=== PATIENT | male | born 1955 | race Caucasian/White ===

== ENCOUNTER 2021-02-14 08:20 | Emergency (ER) | payer MEDICARE, OTHER ==
--- NOTE | 2021-02-14 08:33 | ED Physician Documentation ---
PD HPI CHEST PAIN - Stated complaint Stated Complaint: CHEST PX - History obtained from History obtained from: Patient - History of Present Illness Timing - onset: How many days ago (few) Timing - onset during: Rest (he had noted it mostly when lying down at night, has brief sharp pains lower sternal area localized. Also tender to palpation there. Unrelated to eating.). No: Light activity, Exertion Timing - duration: Seconds Timing - details: Abrupt onset, Intermittant Quality: Aching, Sharp, Pain Location: Substernal (lower sternal/costal margin) Radiation: No: Neck, Back, Abdominal Improved by: No: Rest Worsened by: Palpation, Position (noted when lying down or the act of going sitting to lying) Associated symptoms: Cough (mild chronic). No: Shortness of air, Diaphoresis, Nausea, Feeling faint / dizzy Similar symptoms before: Has not had sx before Recently seen: Not recently seen Review of Systems Constitutional: denies: Fever, Chills Nose: denies: Rhinorrhea / runny nose, Congestion Throat: denies: Sore throat Respiratory: denies: Cough GI: denies: Nausea, Vomiting, Diarrhea Skin: denies: Rash, Lesions Musculoskeletal: denies: Extremity swelling PD PAST MEDICAL HISTORY - Past Medical History Cardiovascular: Hypertension Respiratory: None Neuro: Seizure disorder Endocrine/Autoimmune: None GI: None - Present Medications Home Medications: Ambulatory Orders Medication Instructions Recorded Confirmed Meloxicam [Mobic] 7.5 mg PO BID PRN #15 tablet 02/14/21 Soluble [place] Fiber [Fibercel] 400 gm PO DAILY 15 Days 02/14/21 - Allergies Allergies/Adverse Reactions: Allergies Allergy/AdvReac Type Severity Reaction Status Date / Time divalproex sodium Allergy Unknown Verified 02/14/21 10:11 [From Depakote] PD ED PE NORMAL - Vitals Vital signs reviewed: Yes - General General: Alert and oriented X 3, No acute distress, Well developed/nourished - HEENT HEENT: Pharynx benign - Neck Neck: Supple, no meningeal sign, No adenopathy - Cardiac Cardiac: RRR, No murmur - Respiratory Respiratory: No respiratory distress, Clear bilaterally, Other (tender locally at lower xyphoid area and adjacent cartilage. No noted redness nor swelling. ) - Abdomen Abdomen: Soft, Non tender - Derm Derm: Normal color, Warm and dry - Extremities Extremities: No tenderness to palpate, Normal ROM s pain, No edema, No calf t enderness / cord - Neuro Neuro: Alert and oriented X 3, No motor deficit, Normal speech Results - Vitals Vitals: Vital Signs - 24 hr 02/14/21 02/14/21 02/14/21 08:23 09:00 09:30 Temperature 36 C L Heart Rate 43 L 49 L 47 L Respiratory 16 16 18 Rate Blood Pressure 127/68 125/72 139/95 H O2 Saturation 98 96 97 02/14/21 10:14 Temperature 36.0 C L Heart Rate 47 L Respiratory 18 Rate Blood Pressure 120/70 O2 Saturation 98 Oxygen O2 Source Room air - EKG (time done) 08:25 Rate: Rate (enter#) (46) Rhythm: Sinus bradycardia [place]: Normal Intervals: Normal ID QRS: Poor R wave progression Ischemia: Normal ST segments. No: ST elevation c/w ischemia, ST depression - Labs Labs: Laboratory Tests 02/14/21 02/14/21 02/14/21 08:37 08:37 08:37 WBC 4.0 L RBC 4.16 L Hgb 13.6 L Hct 40.6 L MCV 97.6 H MCH 32.7 H MCHC 33.5 RDW 13.7 Plt Count 236 MPV 8.9 Neut # (Auto) 1.8 Lymph # (Auto) 1.6 [place] # (Auto) 0.4 Eos # (Auto) 0.2 Baso # (Auto) 0.1 Absolute Nucleated RBC 0.00 Nucleated RBC % 0.0 Sodium 136 Potassium 4.0 Chloride 101 Carbon Dioxide 27 Anion Gap 8.0 BUN 15 Creatinine 0.8 Estimated GFR (MDRD) 96 Glucose 101 H Calcium 8.8 Total Bilirubin 0.3 AST 16 ALT 14 Alkaline Phosphatase 73 Troponin I High Sens 2.9 B-Natriuretic Peptide Total Protein 7.1 Albumin 4.1 Globulin 3.0 Albumin/Globulin Ratio 1.4 Lipase 24 Phenytoin 8.1 02/14/21 08:37 WBC RBC Hgb Hct MCV MCH MCHC RDW Plt Count MPV Neut # (Auto) Lymph # (Auto) [place] # (Auto) Eos # (Auto) Baso # (Auto) Absolute Nucleated RBC Nucleated RBC % Sodium Potassium Chloride Carbon Dioxide Anion Gap BUN Creatinine Estimated GFR (MDRD) Glucose Calcium Total Bilirubin AST ALT Alkaline Phosphatase Troponin I High Sens B-Natriuretic Peptide 41 Total Protein Albumin Globulin Albumin/Globulin Ratio Lipase Phenytoin - Rads (name of study) chest xray Radiology: Prelim report reviewed (negative for acute process), See rad report RUQ abed U/S Radiology: Prelim report reviewed (gallbladder normal), See rad report PD MEDICAL DECISION MAKING - ED course Complexity details: considered differential (pain local and brief, related to position and palpation. Seens lower sternal costchondral. ), d/w patient Departure - Departure Disposition: Home, Self Care Clinical Impression: Costochondral chest pain Chest pain Qualifiers: Chest pain type: unspecified Qualified Code(s): R07.9 - Chest pain, unspecified Condition: Stable Record reviewed to determine appropriate education?: Yes Instructions: ED Chest Pain Costochondritis Follow-Up: MIKKI MESSER MD [Primary Care Provider] - Prescriptions: Soluble Broad Top Fiber [Fibercel] 400 gm PO DAILY 15 Days Meloxicam [Mobic] 7.5 mg PO BID PRN #15 tablet PRN Reason: Pain Comments: Your EKG, chest x-ray, gallbladder ultrasound, and blood tests are normal. No signs of more significant cause such as heart attack, heart failure, pneumonia, collapsed lung, gallbladder inflammation, pancreatitis, kidney problems. Given the localized area of pain along with a little bit of tenderness, I am inclined to think there is some inflammation of the cartilage at the lower part of the sternum. We can treat this with anti-inflammatories twice daily with a week to be taken with food. Add Tylenol every 4-6 hours if needed for pain. This does not really explain the intestinal discomfort and loose stools. For that I would suggest a fiber supplement daily over the next week or 2 and see if that improves. Discharge Date/Time: 02/14/21 10:40
[2021-02-14 09:08] LABS: BASOPHILS # (AUTO) 0.1 10^3/uL (0.0-0.1); BASOPHILS % (AUTO) 1.3 %; EOSINOPHILS # (AUTO) 0.2 10^3/uL (0.0-0.7); EOSINOPHILS % (AUTO) 3.8 %; HCT - HEMATOCRIT 40.6 % (42.0-52.0); HGB - HEMOGLOBIN 13.6 g/dL (14.0-18.0); LYMPHOCYTES # (AUTO) 1.6 10^3/uL (1.5-3.5); LYMPHOCYTES % (AUTO) 40.3 %; MEAN CORPUSCULAR HEMOGLOBIN 32.7 pg (27.0-31.0); MEAN CORPUSCULAR HGB CONC 33.5 g/dL (32.0-36.0); MEAN CORPUSCULAR VOLUME 97.6 fL (80.0-94.0); MEAN PLATELET VOLUME 8.9 fL (7.4-11.4); MONOCYTES # (AUTO) 0.4 10^3/uL (0.0-1.0); NEUTROPHILS # (AUTO) 1.8 10^3/uL (1.5-6.6); NEUTROPHILS % (AUTO) 44.6 %; PLT - PLATELET COUNT 236 10^3/uL (130-450); RED BLOOD COUNT 4.16 10^6/uL (4.70-6.10); RED CELL DISTRIBUTION WIDTH 13.7 % (12.0-15.0)
[2021-02-14 09:24] LABS: ALBUMIN 4.1 g/dL (3.2-5.5); ALBUMIN/GLOBULIN RATIO 1.4 (1.0-2.2); BILIRUBIN,TOTAL 0.3 mg/dL (0.2-1.0); CALCIUM 8.8 mg/dL (8.5-10.3); CREATININE 0.8 mg/dL (0.6-1.2); PHENYTOIN (DILANTIN) 8.1 ug/mL; TOTAL PROTEIN 7.1 g/dL (6.7-8.2)
--- NOTE | 2021-02-14 09:26 | XRAY Report ---
PROCEDURE: Chest 1 View X-Ray INDICATIONS: Chest Pain TECHNIQUE: One view of the chest was acquired. COMPARISON: None FINDINGS: Surgical changes and devices: None. Lungs and pleura: No pleural effusions or pneumothorax. Lungs are clear. Mediastinum: Mediastinal contours appear normal. Heart size is normal. Bones and chest wall: No suspicious bony lesions. Overlying soft tissues appear unremarkable. IMPRESSION: No acute pulmonary process. Reviewed by: Tatiana Pace MD on 02/14/2021 9:25 AM PDT Approved by: Tatiana Pace MD on 02/14/2021 9:25 AM PDT Station ID: [id number]
[2021-02-14] MEDS ORDERED: NAPROXEN 250 MG TABLET PO STA (09:54)
--- NOTE | 2021-02-14 09:54 | Ultrasound Report ---
PROCEDURE: Abdomen Limited INDICATIONS: upper abd pain intermittent TECHNIQUE: Real-time scanning was performed of the abdominal and retroperitoneal organs, with image documentatio n. COMPARISON: None. FINDINGS: Liver: Liver is mildly prominent with steatosis. Simple cyst is noted in the left lobe measuring 7 x 6 x 4 mm. Gallbladder: No stones are identified. Wall thickness is within normal limits measuring 1.5 mm. Biliary ducts: Intrahepatic bile ducts are non-dilated. Extrahepatic bile duct caliber measures 4.2 mm. Normal is 6-7 mm or less in diameter, or 10 mm or less post-cholecystectomy. Pancreas: Visualized portions of the pancreas are sonographically normal. Kidneys: Kidneys are normal in size and echotexture. Right kidney measures 10.6 cm long. No hydron ephrosis or nephrolithiasis. No solid masses. IMPRESSION: Mild hepatic prominence with steatosis. 2. Bilateral unremarkable. Reviewed by: Tatiana Pace MD on 02/14/2021 9:53 AM PDT Approved by: Tatiana Pace MD on 02/14/2021 9:53 AM PDT Station ID: [id number]
[2021-02-14 10:15] VITALS: BP 120/70
== END 2021-02-14 10:40 | disposition home or self-care (01) ==
LOC: ED 08:20
DX: R07.89 Other chest pain (principal); I10 Essential (primary) hypertension; R00.1 Bradycardia, unspecified
CPT/HCPCS: 36415; 71045; 76705; 80053; 80185; 83690; 83880; 84484; 85025; 93005; 99284; A9270

== ENCOUNTER 2021-10-02 06:43 | Outpatient (CLI) | payer OTHER ==
--- NOTE | 2021-10-02 08:47 | Ultrasound Report ---
PROCEDURE: Aorta Screening INDICATIONS: EX SMOKER TECHNIQUE: Real time scanning was performed of the aorta and iliac arteries, with image documentatio n. COMPARISON: Ultrasound of abdomen dated 02/14/2021 FINDINGS: Aorta: Proximal aortic diameter measures 2.4 x 2.5 cm. Mid-aorta measures 2 x 2.1 cm. Distal aorti c diameter is 2.1 x 2.2 cm. Iliac arteries: Right common iliac artery measures 1.2 x 1.3 cm. Left common iliac artery measures 1.1 x 1.3 cm. Mild to moderate amount of calcified atherosclerotic plaque seen scattered throughout abdominal aorta . IMPRESSION: 1. No abdominal aortic aneurysm. 2. Mild to moderate calcified atherosclerotic plaques throughout abdominal aorta. Reviewed by: Jayro Westbrook MD on 10/02/2021 8:46 AM PST Approved by: Jayro Westbrook MD on 10/02/2021 8:46 AM PST Station ID: [id number]
--- NOTE | 2021-10-02 09:02 | CT Report ---
PROCEDURE: Low Dose Lung Cancer Screen INDICATIONS: EX SMOKER TECHNIQUE: Noncontrast low-dose images were acquired from the pulmonary apices to the posterior costophrenic ang les. Multiplanar MIP reformats were then acquired. For radiation dose reduction, the following was used: automated exposure control, adjustment of mA and/or kV according to patient size. COMPARISON: None. FINDINGS: Image quality: Excellent. Lungs and pleura: 4 mm subpleural solid nodule is seen in posterior right apex series 4 image 55. 3 mm pleural-based solid nodule posterior right upper lobe series 4 image 77. 4 mm solid nodule in posterior right lower lobe superior segment series 4 image 138. 3 mm solid nodule in lateral right middle lobe series 4 image 233. 3 mm solid nodule in lateral aspect of left lower lobe series 4 image 257. No acute airspace opacity. No pleural effusion or pneumothorax. Central and peripheral airway is bagley nt. Mediastinum: Heart size is normal. No pericardial effusion. No mediastinal adenopathy by size crit eria. Thoracic aorta and central pulmonary arteries are normal in size. Moderate atherosclerotic ca lcifications and coronary vessels and thoracic aorta is seen. Esophagus is normal in caliber. No hia letty hernia. Bones and chest wall: No suspicious bony lesions. No vertebral body compression fractures. No axil ethan or supraclavicular adenopathy by size criteria. The thyroid is normal in size and there are no incidental findings. Abdomen: Visualized upper abdomen solid organs and bowel loops appear normal in the absence of contr ast. IMPRESSION: 1. 3 to 4 mm solid nodules scattered in bilateral lung dsouza as described above. 2. No mediastinal or hilar lymphadenopathy. 3. Mild to moderate atherosclerotic disease. Lung RADS category: 2, benign findings. Annual low dose screening CT follow-up is recommended if clin ically indicated. CLINICAL RECOMMENDATION STATEMENTS: In patients <35 years with an ITN detected on CT, MRI, or extrathyroidal ultrasound, the Committee re commends further evaluation with dedicated thyroid ultrasound if the nodule is "e1 cm and has no susp icious imaging features, and if the patient has normal life expectancy. In patients "e35 years with an ITN detected on CT, MRI, or extrathyroidal ultrasound, the Committee r ecommends further evaluation with dedicated thyroid ultrasound if the nodule is "e1.5 cm and has no s uspicious imaging features, and if the patient has normal life expectancy. (ACR, 2014) Reviewed by: Jayro Westbrook MD on 10/02/2021 9:00 AM PST Approved by: Jayro Westbrook MD on 10/02/2021 9:00 AM PST Station ID: [id number]
== END 2021-10-02 06:44 | disposition home or self-care (01) ==
LOC: DI 06:43
PROVIDERS: ATTEND Nurse Practitioner Family
DX: Z12.2 Encounter for screening for malignant neoplasm of respiratory organs (principal); Z13.6 Encounter for screening for cardiovascular disorders; Z87.891 Personal history of nicotine dependence; I70.0 Atherosclerosis of aorta; R91.8 Other nonspecific abnormal finding of lung field

== ENCOUNTER 2022-12-20 07:40 | Emergency (ER) | payer OTHER ==
[2022-12-20 07:53] VITALS: BP 135/60
[2022-12-20] MEDS ORDERED: oxyCODONE 5 MG TABLET PO STA (08:16)
[2022-12-20] MEDS ORDERED: ACETAMINOPHEN 500 MG TABLET PO STA (08:16)
[2022-12-20] MEDS ORDERED: LIDOCAINE PATCH 5% TOP STA (08:16)
--- NOTE | 2022-12-20 09:17 | CT Report ---
PROCEDURE: LUMBAR SPINE WO INDICATIONS: pain TECHNIQUE: Noncontrast 3 mm thick sections acquired from the T12 level to the sacrum. Sagittal and coronal refo rmats were constructed. For radiation dose reduction, the following was used: automated exposure co ntrol, adjustment of mA and/or kV according to patient size. COMPARISON: None. FINDINGS: Image quality: Excellent. Bones: No acute vertebral body compression fractures. No suspicious lytic or blastic bony lesions. Central spinal caliber is of normal overall caliber. Mild dextroconvex scoliotic curvature is seen. Minimal retrolisthesis can be seen at L3-L4 and L4-L5. Grade 1 anterolisthesis is seen at the L5-S1 level, with associated pars defects. T12-L1: Normal in appearance. L1-L2: Normal in appearance. L2-L3: The disc height is relatively well preserved. Mild to moderate disc bulge is seen, which is eccentric to the left. There is a left foraminal disc protrusion. There is moderate left-sided and m ild right-sided neuroforaminal narrowing. Minimal central canal narrowing is seen. L3-L4: Moderate loss of disc height is seen. Vacuum disc phenomenon is seen at this level. Endpl ate irregularity and sclerosis can be seen. Moderate disc bulge is seen, which is eccentric to the ri ght side. Posteriorly directed endplate osteophytes are seen. Mild to moderate facet hypertrophy ca n be seen. Moderate bilateral neural foraminal narrowing is seen. Mild central canal narrowing is s een. L4-L5: Moderate loss of disc height is seen. Endplate irregularity and sclerosis can be seen. Vacu um disc phenomenon is seen at this level. Moderate disc bulge is seen at this level. A superimpose d central disc protrusion is seen. Mild to moderate facet hypertrophy is seen. There is moderate to severe right-sided and at least moderate left-sided neuroforaminal narrowing. There is a degree of c ompression seen upon the exiting right L4 nerve root. Mild central canal narrowing is seen. L5-S1: At least moderate loss of disc height is seen. Vacuum disc phenomenon is seen at this level . Endplate irregularity and sclerosis can be seen. Moderate disc bulge is seen at this level. Po steriorly directed endplate osteophytes are seen. Mild facet hypertrophy is seen. Moderate to sever e bilateral neural foraminal narrowing can be seen, with associated compression upon the exiting nerv e roots. Mild central canal narrowing is seen. Sacroiliac joint degenerative change can be seen, with a degree of fusion on both sides, left worse t alejandra right. Soft tissues: No retroperitoneal masses or hematomas. Visualized aorta is normal in caliber. Ather osclerotic calcification is seen. IMPRESSION: Multiple levels of lumbar spine degenerative change are seen, which are overall worst at the L5-S1 le primitivo. At this level, there is grade 1 L5-S1 anterolisthesis, with associated bilateral pars defects. M oderate to severe bilateral neuroforaminal narrowing can be seen, with associated compression upon th e exiting bilateral L5 nerve roots. If it would be helpful for clinical management decision making, please consider a dedicated, schedule d lumbar MRI for further evaluation (assuming that there is no contraindication). Reviewed by: Andi Matthews MD on 12/20/2022 8:16 AM ELPIDIO Approved by: Andi Matthews MD on 12/20/2022 8:16 AM ELPIDIO Station ID: [id number]
--- NOTE | 2022-12-20 09:32 | ED Physician Documentation ---
PD HPI BACK PAIN - Stated complaint Stated Complaint: LT SIDE PX - Chief complaint Chief Complaint: Back Pain - History obtained from History obtained from: Patient, Family (Daughter) - Additional information Additional information: Patient is a 67-year-old male presenting for evaluation of left lower back pain radiating down his left leg that has been present for the past 3 to 4 days since mowing the lawn. Patient states that over the past few years he has had difficulty mowing his lawn due to pain afterwards.Per his daughter who is at the bedside patient is quite sedentary is no longer able to go on walks over to other maintenance work like mow a small lawn that they have. He has been able to ambulate but reports pain radiating down his leg. He denies any falls.He does not take a blood thinner. He denies loss of bowel or bladder control. He denies fevers. He has had no injections to his back or prior procedures to his back.He has tried Tylenol without any significant improvement. Review of Systems Constitutional: denies: Fever Cardiac: denies: Chest pain / pressure Respiratory: denies: Dyspnea GI: denies: Abdominal Pain, Vomiting : denies: Dysuria, Incontinent Musculoskeletal: reports: Back pain Neurologic: denies: Headache PD PAST MEDICAL HISTORY - Past Medical History Cardiovascular: Hypertension Respiratory: None Neuro: Seizure disorder Endocrine/Autoimmune: None GI: None - Past Surgical History Past Surgical History: No - Present Medications Home Medications: Ambulatory Orders Medication Instructions Recorded Confirmed Meloxicam [Mobic] 7.5 mg PO BID PRN #15 tablet 02/14/21 Soluble [place] Fiber [Fibercel] 400 gm PO DAILY 15 Days 02/14/21 Lidocaine Patch 5% [Lidoderm Patch] 1 patch TOP DAILY PRN #10 patch 12/20/22 Oxycodone HCl/Acetaminophen 1 each PO Q6H PRN #14 tablet 12/20/22 [Percocet 5-325 mg Tablet] predniSONE [Deltasone] 20 mg PO [id number] #21 tab 12/20/22 - Allergies Allergies/Adverse Reactions: Allergies Allergy/AdvReac Type Severity Reaction Status Date / Time divalproex sodium Allergy Unknown Verified 12/20/22 07:54 [From Depakote] - Social History Does the pt smoke?: Yes Smoking Status: Current every day smoker Does the pt drink ETOH?: No Does the pt have substance abuse?: No PD ED PE NORMAL - General General: Alert and oriented X 3, Well developed/nourished - HEENT HEENT: Atraumatic - Neck Neck: Supple, no meningeal sign, No bony TTP - Cardiac Cardiac: RRR, No murmur, Strong equal pulses - Respiratory Respiratory: No respiratory distress, Clear bilaterally - Abdomen Abdomen: Soft, Non tender, Non distended - Back Back: Other (Mild midline low lumbar tenderness to palpation) - Derm Derm: Warm and dry, No rash - Extremities Extremities: No deformity, No tenderness to palpate, No calf tenderness / cord - Neuro Neuro: Alert and oriented X 3, No motor deficit, No sensory deficit (Reports mild paresthesia To left lateral leg), Normal speech Results - Vitals Vitals: Vital Signs - 24 hr 12/20/22 12/20/22 07:46 08:00 Temperature 36.6 C Heart Rate 71 Respiratory 15 Rate Blood Pressure 135/60 H O2 Saturation 98 Oxygen O2 Source Room air PD Medical Decision Making - ED course Complexity details: reviewed results, re-evaluated patient, d/w patient, d/w family ED course: Patient is a 67-year-old male presenting for evaluation of low back pain radiating to his left leg for the past several days after mowing his lawn. He has had difficulties in recent years with completing a lawn care due to having pain while doing so and afterwards.Denies any recent falls or other known injuries. He does not take a blood thinner.No fever. No abdominal tenderness. No bowel or bladder incontinence or reports of saddle anesthesia.His strength is preserved in his lower extremity.Good distal pulses in extremity appears warm and well-perfused. There is no swelling.CT scan that was obtained given his age of his lumbar spine showing degenerative changes Which is worse at L5-S1 which corresponds with patient's exam. Discussed options for treatment and patient is comfortable with plan for course of steroids as well as narcotic pain medication. Understands the need to follow-up with his PCP and is advised on concerning symptoms to return for. Departure - Departure Disposition: 01 Home, Self Care Clinical Impression: Radicular low back pain Condition: Stable Instructions: Lumbar Radiculopathy, ED Neck Back Pain General Prescriptions: predniSONE [Deltasone] 20 mg PO [id number] #21 tab Lidocaine Patch 5% [Lidoderm Patch] 1 patch TOP DAILY PRN #10 patch PRN Reason: pain Oxycodone HCl/Acetaminophen [Percocet 5-325 mg Tablet] 1 each PO Q6H PRN #14 tablet PRN Reason: pain Comments: The CT scan of your lumbar spine shows degenerative changes which could be causing compression on nerve roots which could also be the reason for your pain. I am starting you on a course of prednisone to help with inflammation as well as a short amount of narcotic pain medication and lidocaine patches. I have sent your prescriptions to [facility] in [place]. I would recommend close follow-up with your primary care provider as you may need further testing such as an MRI. Please return to the emergency department if you develop any worsening symptoms such as increased pain, loss of bowel or bladder control, weakness or any new concerns. I am prescribing a short course of narcotic pain medication for you. These are potentially dangerous and addictive medications that should be used carefully. These medications may constipate you. Take an [id number] stool softener (docusate) twice daily with plenty of water while taking these medications. If you go 24 hours without a bowel movement, take [id number] miralax, per package instructions. Do not drink or drive while taking these medications. If you received narcotic or sedating medications while in the emergency department, do not drive for 24 hours. Store this medication in a safe, secure place and out of reach of children. It is a violation of federal law to give or sell this medication to another person or to use in a manner other than prescribed. The ED will not refill narcotic prescriptions, including prescriptions lost or stolen. To dispose of unwanted medications: 1. [facility] at [address] in [place] has a medication drop box. They accept prescription medications (in pill form) Thursday through Thursday 9:00 a.m. to 5:00 p.m. 2. The [facility] [employer] accepts prescription medications (in pill form only) for disposal year round. Call for more information. 3. Contact the [facility] for the next [facility] sponsored prescription dr rodrick estrada event. , [phone], or [phone]; Note that many narcotic pain relievers also contain Tylenol/acetaminophen. Please ensure that your total dose of acetaminophen from all sources does not exceed 3 g (3000 mg) per day. IMPRESSION: Multiple levels of lumbar spine degenerative change are seen, which are overall worst at the L5-S1 level. At this level, there is grade 1 L5-S1 anterolisthesis, with associated bilateral pars defects. Moderate to severe bilateral neuroforaminal narrowing can be seen, with associated compression upon the exiting bilateral L5 nerve roots. If it would be helpful for clinical management decision making, please consider a dedicated, scheduled lumbar MRI for further evaluation (assuming that there is no contrai ndication). Discharge Date/Time: 12/20/22 09:50
== END 2022-12-20 09:50 | disposition home or self-care (01) ==
LOC: ED 07:40
DX: M54.50 Low back pain, unspecified (principal); I10 Essential (primary) hypertension; F17.200 Nicotine dependence, unspecified, uncomplicated
CPT/HCPCS: 72131; 99283; 99284; A9270

== ENCOUNTER 2022-12-26 14:10 | Outpatient (CLI) | payer OTHER ==
--- NOTE | 2022-12-26 16:01 | MRI Report ---
PROCEDURE: LUMBAR SPINE WO INDICATIONS: LOW BACK PAIN TECHNIQUE: Noncontrast sagittal T1 spin echo and T2 fast echo, sagittal STIR, axial T1 and T2 fast spin echo thr ough the lumbar spine. In cases with scoliosis, additional coronal T2 fast spin echo may be performe d. COMPARISON: CT lumbar spine dated 12/20/2022 FINDINGS: Image quality: Excellent. Alignment and Curvature: There is stable bony alignment with grade 1 anterolisthesis of L5 on S1 sec ondary to bilateral pars defects at L5. Bone Marrow: Marrow is of normal overall signal. No acute vertebral body compression fractures. Spinal Cord: Conus medullaris terminates at the L1 level. Visualized cord demonstrates normal signa l and size. Paraspinous Soft Tissues: No paravertebral masses. T12-L1: Normal in appearance. L1-L2: Normal in appearance. L2-L3: Mild bilateral facet arthropathy. Small symmetric disc bulge. Ligamentum flavum hypertrophy . There is mild left and minimal right bilateral neuroforaminal stenosis without spinal canal stenosi s. L3-L4: Disc desiccation. Moderate loss of disc height. Moderate degenerative endplate changes and e ndplate osteophyte formation. Prominent symmetric disc bulge. Bilateral facet arthropathy and minimal ligament flavum hypertrophy. Findings result in moderate bilateral neuroforaminal stenosis without s ignificant spinal canal stenosis. L4-L5: Disc desiccation with moderate disc height loss. Moderate degenerative endplate changes. End plate osteophyte formation. Moderate bilateral facet arthropathy. Moderate sized disc bulge slightly eccentric to the right. There is moderate-severe right and moderate left bilateral neural foraminal s tenosis without significant spinal canal stenosis. L5-S1: Disc desiccation with disc height loss and degenerative endplate changes. Bilateral facet ar thropathy. L5 pars defect. Grade 1 anterolisthesis of L5 on S1. Uncovering of the posterior L5-S1 dis c secondary to anterolisthesis. No significant spinal canal stenosis. There is severe bilateral neuro foraminal stenosis without significant spinal canal stenosis. IMPRESSION: Multilevel, multifactorial lumbar spondylosis as detailed above by vertebral body level findings are most pronounced from L3-4 through L5-S1 with the most severe levels noted at L4-5 and L5-S1. Grade 1 anterolisthesis of L5 on S1 secondary to bilateral pars defects. Reviewed by: Rufino Hicks MD on 12/26/2022 4:00 PM PDT Approved by: Rufino Hicks MD on 12/26/2022 4:00 PM PDT Station ID: [id number]
== END 2022-12-26 14:11 | disposition home or self-care (01) ==
LOC: DI 14:10
PROVIDERS: ATTEND Nurse Practitioner Family
DX: M54.42 Lumbago with sciatica, left side (principal); M47.816 Spondylosis without myelopathy or radiculopathy, lumbar region; M47.817 Spondylosis without myelopathy or radiculopathy, lumbosacral region; M43.17 Spondylolisthesis, lumbosacral region

== ENCOUNTER 2023-05-13 09:21 | Emergency (ER) | payer OTHER ==
[2023-05-13] MEDS: MECLIZINE 12.5 MG TABLET PO STA (10:00)
[2023-05-13] MEDS: CARBAMIDE PEROXIDE 6.5% OTIC DROPS EACHEAR STA (10:01)
[2023-05-13] MEDS: SODIUM CHLORIDE 0.9% 1,000 ML IV STA (10:01)
[2023-05-13 10:36] LABS: BASOPHILS % (AUTO) 0.8 %; EOSINOPHILS # (AUTO) 0.2 10^3/uL (0.0-0.7); HCT - HEMATOCRIT 37.8 % (42.0-52.0); HGB - HEMOGLOBIN 12.2 g/dL (14.0-18.0); LYMPHOCYTES # (AUTO) 1.4 10^3/uL (1.5-3.5); LYMPHOCYTES % (AUTO) 29.9 %; MEAN CORPUSCULAR HEMOGLOBIN 32.6 pg (27.0-31.0); MEAN CORPUSCULAR HGB CONC 32.3 g/dL (32.0-36.0); MEAN CORPUSCULAR VOLUME 101.1 fL (80.0-94.0); MEAN PLATELET VOLUME 8.9 fL (7.4-11.4); MONOCYTES # (AUTO) 0.6 10^3/uL (0.0-1.0); MONOCYTES % (AUTO) 11.5 %; NEUTROPHILS # (AUTO) 2.5 10^3/uL (1.5-6.6); NEUTROPHILS % (AUTO) 52.6 %; PLT - PLATELET COUNT 252 10^3/uL (130-450); RED BLOOD COUNT 3.74 10^6/uL (4.70-6.10); RED CELL DISTRIBUTION WIDTH 13.9 % (12.0-15.0); WHITE BLOOD COUNT 4.8 x10^3/uL (4.8-10.8)
[2023-05-13 10:51] LABS: ALBUMIN 4.2 g/dL (3.2-5.5); ALBUMIN/GLOBULIN RATIO 1.6 (1.0-2.2); BILIRUBIN,TOTAL 0.2 mg/dL (0.2-1.0); CALCIUM 9.3 mg/dL (8.5-10.3); CREATININE 0.7 mg/dL (0.6-1.3); POTASSIUM 4.2 mmol/L (3.5-4.5); TOTAL PROTEIN 6.9 g/dL (6.4-8.9)
--- NOTE | 2023-05-13 11:07 | CT Report ---
PROCEDURE: HEAD WO INDICATIONS: headache/fall TECHNIQUE: Noncontrast 4.5 mm thick angled axial sections acquired from the foramen magnum to the vertex. For r adiation dose reduction, the following was used: automated exposure control, adjustment of mA and/or kV according to patient size. COMPARISON: None. FINDINGS: Image quality: Excellent. CSF spaces: Basal cisterns are patent. No extra-axial fluid collections. Ventricles are normal in size and shape. Brain: No midline shift. No intracranial masses or hemorrhage. José-white matter interface is norm al. Age-related volume loss and small vessel ischemic change. Left frontal and left temporal encephal omalacia may potentially be related to previous infarct or trauma. Atherosclerotic intracranial carot id calcifications. Skull and face: Old bilateral frontal and temporal shira holes. Calvarium and visualized facial bones are intact, without suspicious lesions. Sinuses: Patchy bilateral ethmoid disease, left greater than right. Minimal bilateral Sinus mucosal thickening. IMPRESSION: 1. No acute intracranial pathology. 2. Age-related volume loss and small vessel ischemic change. 3. Left frontal and left temporal encephalomalacia, possibly related to previous infarct or trauma. Reviewed by: Lewis Quiles MD on 05/13/2023 11:05 AM PDT Approved by: Lewis Quiles MD on 05/13/2023 11:05 AM PDT Station ID: [id number]
--- NOTE | 2023-05-13 11:43 | ED Physician Documentation ---
History of Present Illness - Stated complaint Stated Complaint: DIZZINESS,WEAK - Chief complaint Chief Complaint: Neuro - History obtained from History obtained from: Patient, Family - Additonal information Additional information: Patient is a 67-year-old male presenting for evaluation of dizziness that he noticed at 4:00 this morning as he woke up. He states he was trying to get out of bed to go to the bathroom when he noted that he was very dizzy and unsteady and fell back. He is unsure if he hit his head. He does not have LOC. Reports having had dizziness in the past but never lasting this long and feels very unsteady on his feet. Normally has difficulty with hearing but daughter states that in the past week it has become much worse. Patient does not take a blood thinner. Denies associated abnormal vision, nausea, vomiting, chest pain or shortness of air. Review of Systems Cardiac: denies: Chest pain / pressure Respiratory: denies: Dyspnea GI: denies: Abdominal Pain Neurologic: denies: Syncope PD PAST MEDICAL HISTORY - Past Medical History Cardiovascular: Hypertension Respiratory: None Neuro: Seizure disorder Endocrine/Autoimmune: None GI: None - Past Surgical History Past Surgical History: No - Present Medications Home Medications: Ambulatory Orders Medication Instructions Recorded Confirmed Meloxicam [Mobic] 7.5 mg PO BID PRN #15 tablet 02/14/21 Soluble [place] Fiber [Fibercel] 400 gm PO DAILY 15 Days 02/14/21 Lidocaine Patch 5% [Lidoderm Patch] 1 patch TOP DAILY PRN #10 patch 12/20/22 Oxycodone HCl/Acetaminophen 1 each PO Q6H PRN #14 tablet 12/20/22 [Percocet 5-325 mg Tablet] predniSONE [Deltasone] 20 mg PO [id number] #21 tab 12/20/22 Meclizine HCl [Motion Sickness] 25 mg PO Q6H PRN #20 tablet 05/13/23 - Allergies Allergies/Adverse Reactions: Allergies Allergy/AdvReac Type Severity Reaction Status Date / Time divalproex sodium Allergy Unknown Verified 05/13/23 09:28 [From [facility]] - Social History Does the pt smoke?: Yes Smoking Status: Current every day smoker Does the pt drink ETOH?: No Does the pt have substance abuse?: No PD ED PE NORMAL - General General: Alert and oriented X 3, No acute distress, Well developed/nourished, Other (Very hard of hearing) - HEENT HEENT: Atraumatic, PERRL, EOMI, Moist mucous membranes, Other ( Bilateral cerumen impaction, positive [place]-Hallpike with head turning to the right) - Neck Neck: Supple, no meningeal sign, No bony TTP - Cardiac Cardiac: RRR, No murmur - Respiratory Respiratory: No respiratory distress, Clear bilaterally - Abdomen Abdomen: Soft, Non tender - Derm Derm: Warm and dry - Neuro Neuro: Alert and oriented X 3, heat curer 2-12 intact, No motor deficit, No sensory deficit, Normal speech, Other (Normal gqyjsg-xp-hven bilaterally) Results - Vitals Vitals: Vital Signs - 24 hr 05/13/23 05/13/23 05/13/23 09:25 14:57 16:56 Temperature 36.4 C L 36.4 C L Heart Rate 58 L 51 L Respiratory 20 18 18 Rate Blood Pressure 139/74 H 142/84 H O2 Saturation 97 98 Oxygen O2 Source Room air - EKG (time done) 0950 EKG releavant findings:: EKG personally interpreted by author of this note. Relevant findings are: Rate 56, sinus bradycardia, no STEMI Rate: Rate (enter#) (56) Rhythm: Sinus bradycardia Intervals: No: Prolonged QT - Labs Labs: Laboratory Tests 05/13/23 05/13/23 10:15 10:15 WBC 4.8 RBC 3.74 L Hgb 12.2 L Hct 37.8 L MCV 101.1 H MCH 32.6 H MCHC 32.3 RDW 13.9 Plt Count 252 MPV 8.9 Neut # (Auto) 2.5 Lymph # (Auto) 1.4 L [place] # (Auto) 0.6 Eos # (Auto) 0.2 Baso # (Auto) 0.0 Absolute Nucleated RBC 0.00 Nucleated RBC % 0.0 Sodium 142 Potassium 4.2 Chloride 109 Carbon Dioxide 29 Anion Gap 4.0 L BUN 23 H Creatinine 0.7 Estimated GFR (MDRD) 112 Glucose 104 Calcium 9.3 Total Bilirubin 0.2 AST 11 ALT 9 L Alkaline Phosphatase 59 Total Protein 6.9 Albumin 4.2 Globulin 2.7 Albumin/Globulin Ratio 1.6 PD Medical Decision Making - ED course Complexity details: reviewed results, re-evaluated patient, d/w patient, d/w family ED course: Pt presenting with vertigo noted this AM. Worse with [place] hallpike testing with head turning to right. EKG reviewed. Labs including CBC and chemistries without significant findings. May have hit head this AM so CT head reviewed and negative for bleed. Pt reports no improvement with meclizine. Suspect peripheral cause but given age and no improvement, further imaging ordered. CT angio head/neck and MRI brain reviewed. No signs of LVO or stroke. Pt starting to feel better here and able to ambulate with standby assist. Also tolerated ear wax removal b/l. Pt comfortable with discharge and understands treatment plan and need for close follow up. Advised on concerning symptoms to return for. Departure - Departure Disposition: Home, Self Care Clinical Impression: Vertigo, Bilateral impacted cerumen Condition: Stable Instructions: ED BPV Vertigo Prescriptions: Meclizine HCl [Motion Sickness] 25 mg PO Q6H PRN #20 tablet PRN Reason: Dizziness Comments: You were evaluated for dizziness today caused by vertigo. We have evaluated you for a stroke and see no evidence of a stroke as the cause of your vertigo. Please continue with the meclizine as needed for your symptoms. I would also recommend close follow-up with your primary care provider. You also have a significant amount of earwax in both ear canals which could be worsening your symptoms. I would recommend follow-up with an ENT or your PCP to have your ears regularly cleaned and would recommend not using Q-tips in your ears. [facility] [place]. Forms: PCP List Discharge Date/Time: 05/13/23 18:08
[2023-05-13] MEDS: iohexoL-300 100 ML VIAL IVP ONE (16:12)
--- NOTE | 2023-05-13 16:41 | MRI Report ---
PROCEDURE: BRAIN WO INDICATIONS: persistent dizziness TECHNIQUE: Noncontrast axial T1 spin echo, axial T2 fast spin echo, sagittal and axial FLAIR, coronal T2 fast sp in echo, axial gradient echo, axial diffusion and ADC through the brain. COMPARISON: Same day head CT and CTA. FINDINGS: Image quality: Excellent. CSF Spaces: Basal cisterns are patent. No extra-axial fluid collections. Ventricles are normal in size and shape. Brain: No intracranial masses or hemorrhage. José/white matter interface is normal. Brainstem appe ars normal. Diffusion-weighted images demonstrate no acute ischemic insult. 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 Normal intravascular flow voids are present. Skull and face: Calvarium has normal marrow signal. Orbits appear normal. Sinuses: Sinuses and mastoids are clear. IMPRESSION: No acute infarct. Reviewed by: Renzo Castillo on 05/13/2023 4:40 PM PDT Approved by: Renzo Castillo on 05/13/2023 4:40 PM PDT Station ID: [id number]
--- NOTE | 2023-05-13 16:44 | CT Report ---
PROCEDURE: CT Angio Head/Neck INDICATIONS: persistent dizziness TECHNIQUE: Pre-contrast 4.5 mm thick sections acquired from the foramen magnum to the vertex. After the adminis tration of intravenous contrast, 1 mm thick sections acquired from the aortic arch through the [place] of [place]. Post-contrast 4.5 mm thick sections then re-acquired from the foramen magnum to the vert ex. 3-dimensional uljbzuz-nhrvfvjuz-umlcxkgfyp (MIP) and/or volume rendering reformats were acquired of the central intracranial vasculature and neck separately. For radiation dose reduction, the foll owing was used: automated exposure control, adjustment of mA and/or kV according to patient size. CONTRAST: Not listed COMPARISON: Same day brain MRI, head CT FINDINGS: Image quality: Excellent. BRAIN: CSF spaces: Ventricles are normal in size and shape. Basal cisterns are patent. No extra-axial flu id collections. Brain: No midline shift. No intracranial bleeds or masses. José-white matter interface appears int act. Skull and face: Calvarium and facial bones appear intact, without suspicious lesions. Orbits appear normal. Sinuses: Sinuses and mastoids are clear. HEAD CT ANGIOGRAPHY: Anterior circulation: Intracranial internal carotid arteries are normal in size and flow. The flow within the paired anterior cerebral arteries is normal and symmetric. The flow within the middle cer ebral arteries is normal and symmetric. The anterior communicating artery is seen. No aneurysms are seen. Posterior circulation: Visualized portions of the vertebral arteries demonstrate normal caliber, and join to form a normal appearing basilar artery. Flow within the posterior cerebral arteries is norm al and symmetric. No aneurysms are seen. NECK CT ANGIOGRAPHY: Carotid system: The great vessels demonstrate a conventional anatomy as they arise from the aortic a rch. The origins of the common carotid arteries appear patent. The common carotid arteries demonstr ate normal caliber and courses. The bifurcation regions are both widely patent. The internal caroti d arteries demonstrate normal calibers and courses. Posterior circulation: The left vertebral artery is diminutive throughout its course, and terminates at the V1 segment. The more superior extracranial portions of both vertebral arteries also demonstra te normal courses and calibers. They join to form a normal appearing basilar artery. Soft tissues: Visualized neck soft tissues demonstrate no suspicious abnormalities. Bones: No suspicious bony lesions. Visualized cervical spine appears normally aligned. IMPRESSION: No acute, large vessel occlusion. Dominant right vertebral artery. The estimate of stenosis included in the report of the imaging study was calculated using the NASCET method Reviewed by: Renzo Castillo on 05/13/2023 4:43 PM PDT Approved by: Renzo Castillo on 05/13/2023 4:43 PM PDT Station ID: [id number]
[2023-05-13 17:06] VITALS: BP 142/84; O2SAT 98
== END 2023-05-13 18:08 | disposition home or self-care (01) ==
LOC: ED 09:21
DX: H61.23 Impacted cerumen, bilateral (principal); R42 Dizziness and giddiness; I10 Essential (primary) hypertension; F17.200 Nicotine dependence, unspecified, uncomplicated
CPT/HCPCS: 36415; 70450; 70496; 70498; 70551; 80053; 85025; 93005; 99284; A9270; Q9967

== ENCOUNTER 2024-03-14 10:44 | Emergency (ER) | payer OTHER ==
--- NOTE | 2024-03-14 11:28 | ED Physician Documentation ---
History of Present Illness - Stated complaint Stated Complaint: RT EYE LOSS OF VISION - Chief complaint Chief Complaint: Heent - History obtained from History obtained from: Patient - History of Present Illness Pain level max: 0 Pain level now: 0 - Additonal information Additional information: Patient is a 68-year-old male who presents to the emergency department with right eye vision loss x 1 week. Saw his PCP today and was sent here for a "CT scan". Has not seen an eye doctor or been referred to an eye doctor. No headaches. No falls. No trauma. Review of Systems Constitutional: denies: Fever, Chills Eyes: denies: Photophobia Ears: denies: Ear pain Nose: denies: Rhinorrhea / runny nose, Congestion PD PAST MEDICAL HISTORY - Past Medical History Past Medical History: Yes Cardiovascular: Hypertension Respiratory: None Neuro: Seizure disorder Endocrine/Autoimmune: None GI: None - Past Surgical History Past Surgical History: No - Present Medications Home Medications: Ambulatory Orders Medication Instructions Recorded Confirmed Meloxicam [Mobic] 7.5 mg PO BID PRN #15 tablet 02/14/21 Soluble [place] Fiber [Fibercel] 400 gm PO DAILY 15 Days 02/14/21 Lidocaine Patch 5% [Lidoderm Patch] 1 patch TOP DAILY PRN #10 patch 12/20/22 Oxycodone HCl/Acetaminophen 1 each PO Q6H PRN #14 tablet 12/20/22 [Percocet 5-325 mg Tablet] predniSONE [Deltasone] 20 mg PO [id number] #21 tab 12/20/22 Meclizine HCl [Motion Sickness] 25 mg PO Q6H PRN #20 tablet 05/13/23 - Allergies Allergies/Adverse Reactions: Allergies Allergy/AdvReac Type Severity Reaction Status Date / Time divalproex sodium Allergy Unknown Verified 03/14/24 10:47 [From Depakote] - Social History Does the pt smoke?: Yes Smoking Status: Current every day smoker Does the pt drink ETOH?: No Does the pt have substance abuse?: No PD ED PE NORMAL - Vitals Vital signs reviewed: Yes - General General: Alert and oriented X 3, No acute distress - HEENT HEENT: Moist mucous membranes, Other (Complete vision loss in the right eye except for a small amount of vision in the right lower quadrant.) - Neck Neck: Supple, no meningeal sign - Cardiac Cardiac: RRR, Strong equal pulses - Respiratory Respiratory: No respiratory distress, Clear bilaterally - Abdomen Abdomen: Soft, Non tender, Non distended - Derm Derm: Warm and dry - Neuro Neuro: Alert and oriented X 3 - Psych Psych: Normal mood, Normal affect Results - Vitals Vitals: Vital Signs - 24 hr 03/14/24 03/14/24 10:48 12:09 Temperature 36.7 C Heart Rate 66 66 Respiratory 18 18 Rate Blood Pressure 138/71 H 132/77 H O2 Saturation 98 99 Oxygen O2 Source Room air PD Medical Decision Making - ED course Complexity details: considered differential, d/w patient, d/w family ED course: bedside ultrasound reveals an obvious retinal detachment. This is quite large in size. This is approximately one week old. Did discuss the case with Dr Sr, ophthalmology, recommends following up with a retinal specialist. Information was given to the patient and his daughter. No indication for further emergency department work up at this time. Patient is not on blood thinners. Patient counseled regarding signs and symptoms for which I believe an urgent re- evaluation would be necessary. Patient with good understanding of and agreement to plan and is comfortable going home at this time. This document was made in part using voice recognition software. While efforts are made to proofread this document, sound alike and grammatical errors may occur. 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 It is important that you follow-up with an import export agent for this. [place]. [place] [facility] The closest retinal specialist [facility], their phone number is [phone] Forms: PCP List Discharge Date/Time: 03/14/24 12:09
[2024-03-14 12:16] VITALS: BP 132/77; O2SAT 99
== END 2024-03-14 12:09 | disposition home or self-care (01) ==
LOC: ED 10:44
DX: H33.21 Serous retinal detachment, right eye (principal); I10 Essential (primary) hypertension; Z79.899 Other long term (current) drug therapy; F17.200 Nicotine dependence, unspecified, uncomplicated
CPT/HCPCS: 99282; 99284

== ENCOUNTER 2024-05-20 07:59 | Outpatient (CLI) | payer OTHER, MEDICARE | END 2024-05-20 08:00 | disposition home or self-care (01) | LOC: LAB.S 07:59 | PROVIDERS: ATTEND Nurse Practitioner Gerontology | DX: G40.909 Epilepsy, unspecified, not intractable, without status epilepticus (principal) | CPT/HCPCS: 36415; 80185; 81599 ==